=== PATIENT | male | born 1970 | race Caucasian/White ===

== ENCOUNTER 2023-12-10 13:44 | Emergency (ER) | payer SELFPAY ==
[~2023-12-10] VITALS: Ht 170.2 cm; Wt 81.8 kg
[2023-12-10] MEDS ORDERED: ASPIRIN 325 MG TAB PO ONE (14:00)
[2023-12-10] MEDS ORDERED: CLOPIDOGREL BISULFATE 75 MG TAB PO ONE (14:00)
[2023-12-10] MEDS ORDERED: HEParin SOD (PORCINE) 5,000 UNIT/ML SYR IV ONE (14:00)
[2023-12-10 14:03] LABS: BASOPHILS 0.3 % (0-2); EOSINOPHILS 0.2 % (0-6); HEMATOCRIT 48.8 % (35.0-50.0); HEMOGLOBIN 16.2 g/dL (12.0-18.0); LYMPHOCYTES 21.4 % (24-44); MCH 30.5 (27-36); MCHC 33.2 g/dl (30-36); MCV 91.7 fl (81-99); MONOCYTES 5.2 % (0-12); NEUTROPHILS 72.9 % (39-80); PLATELET COUNT 262 K/uL (140-440); RBC 5.32 M/ul (4.3-5.7); RDW 13.7 (10.5-15.0)
[2023-12-10] MEDS ORDERED: ASPIRIN 81 MG CHEW PO ONE (14:15)
[2023-12-10] MEDS ORDERED: HEParin SOD (PORCINE) 5,000 UNIT/ML VIAL IV ONE (14:15)
[2023-12-10] MEDS ORDERED: HEPARIN SOD,PORK IN 0.45% NACL 500 ML IV SCH (14:15)
[2023-12-10] MEDS ORDERED: NITROGLYCERIN 50MG/D5W 250 ML IV SCH (14:15)
[2023-12-10 14:22] LABS: ALBUMIN 4.1 g/dL (3.4-5.0); ALBUMIN/GLOBULIN RATIO 1.17 (1.1-2.4); ANION GAP 20.5 (7-21); BILIRUBIN, TOTAL 0.4 ng/dL (0.2-1.0); BUN/CREATININE RATIO 19.84 (6.0-28.6); CALCIUM 9.1 mg/dL (8.5-10.1); CREATININE, SERUM 1.26 mg/dL (0.70-1.30); MAGNESIUM 1.8 mg/dL (1.8-2.4); POTASSIUM 3.5 mmol/L (3.5-5.1); PROTEIN, TOTAL 7.6 g/dL (6.4-8.2)
[2023-12-10 14:34] VITALS: BP 104/77
--- NOTE | 2023-12-11 11:59 | EKG ---
[facility] [address] [facility] [place] [address] elevation, consider inferior injury or acute infarct ACUTE [place] / STEMI Consider right ventricular involvement in acute inferior infarct Abnormal ECG No previous ECGs available Confirmed by Luis Dubon ([id number]) on 12/11/2023 11:58:58 AM Electronically Signed By: LUIS DUBON MD 12/11/23 1159 PATIENT NAME: SHERICE COLE JR Electrocardiogram DATE OF : 74 PHYSICIAN: LUIS DUBON MD REPORT #: [id number] REPORT IS CONFIDENTIAL AND NOT TO BE RELEASED WITHOUT AUTHORIZATION
== END 2023-12-10 14:07 | disposition short-term general hospital (02) ==
LOC: ED 13:44
PROVIDERS: Emergency Medicine
DX: I21.3 ST elevation (STEMI) myocardial infarction of unspecified site (principal)
CPT/HCPCS: 36415; 71045; 80053; 83735; 84484; 85025; 85730; 93005; 93010; 96374; 99285-25; A9270; J1644